=== PATIENT | male | born 1970 | race Caucasian/White ===

== ENCOUNTER → 2024-02-04 06:18 | Outpatient (REF) | payer BC, SELFPAY ==
[2024-02-04 07:47] LABS: ALT (SGPT) 50 U/L (0-50); AST (SGOT) 46 U/L (17-59); Albumin 4.7 g/dl (3.5-5.0); Blood Urea Nitrogen 18 mg/dl (9-20); Calcium 9.8 mg/dl (8.4-10.2); Carbon Dioxide 25 mmol/L (22-30); Glucose 96 mg/dl (70-99); HDL Cholesterol 40 mg/dl; Potassium 4.8 mmol/L (3.5-5.1); Total Bilirubin 0.7 mg/dl (0.2-1.3); Total Cholesterol 261 mg/dl (50-199); Total Protein 7.3 g/dl (6.3-8.2); eGFR > 60.00
[2024-02-04 07:57] LABS: LDL Cholesterol, Direct 64 mg/dl
[2024-02-04 08:00] LABS: Alkaline Phosphatase 67 U/L (38-126); Chloride 101 mmol/L (98-107); Sodium 137 mmol/L (135-145)
[2024-02-04 08:06] LABS: Triglyceride 1288 mg/dl (10-149)
[2024-02-04 08:17] LABS: Estradiol 30.7 pg/ml (5.4-66)
[2024-02-05 11:41] LABS: % Free Testosterone 1.6 % (1.6-2.9); Free Testosterone 160 pg/mL (47-244); Sex Hormone Binding Globulin 55 nmol/L (19-76); Total Testosterone 1011 ng/dL (300-890)
== END ==
LOC: REG 06:18
PROVIDERS: ATTENDING PHYSICIAN Nurse Practitioner Family; FAMILY PHYSICIAN Nurse Practitioner Family
DX: E29.1 Testicular hypofunction (principal); R53.82 Chronic fatigue, unspecified; E78.5 Hyperlipidemia, unspecified; E55.9 Vitamin D deficiency, unspecified; I10 Essential (primary) hypertension; Z12.11 Encounter for screening for malignant neoplasm of colon; E66.9 Obesity, unspecified
CPT/HCPCS: 36415; 80053; 80061; 82670; 83721; 84270; 84402; 84403

== ENCOUNTER → 2024-02-06 08:27 | Outpatient (REF) | payer BC, SELFPAY ==
[2024-02-06 12:56] LABS: % Basophils 0.4 % (0-2); % Eosinophils 1.8 % (0-6); % Immature Granulocytes 0.2 % (0-0.5); % Lymphocytes 29.9 % (20.5-51.1); % Monocytes 10.6 % (1.7-9.3); % Neutrophils 57.1 % (42.2-75.2); Absolute Eosinophils 0.1 10^3/uL (0-0.7); Absolute Lymphocytes 1.3 10^3/uL (1.2-3.4); Absolute Monocytes 0.5 10^3/uL (0.1-0.6); Absolute Neutrophils 2.5 10^3/uL (1.4-6.5); Hematocrit 44.6 % (39.0-52.0); Hemoglobin 15.6 g/dL (13.0-18.0); Mean Corpuscular Hgb 31.3 pg (27.0-31.0); Mean Corpuscular Volume 89.4 fL (80.0-94.0); Mean Platelet Volume 10.7 fL (7.4-10.4); Nucleated Red Blood Cells % 0 % (-); Platelet Count 207 10^3/uL (130-400); Red Blood Cell Count 4.99 10^6/uL (4.70-6.10); Red Cell Dist. Width 12.9 % (11.5-14.5); White Blood Cell Count 4.5 10^3/uL (4.8-10.8)
[2024-02-06 13:42] LABS: HDL Cholesterol 57 mg/dl; LDL Cholesterol, Calculated 134 mg/dl; Total Cholesterol 220 mg/dl (50-199); Triglyceride 146 mg/dl (10-149); Very Low Density Lipoprotein 29 mg/dl (0-30)
[2024-02-06 13:54] LABS: Free T3 4.23 pg/ml (2.77-5.27); Total Thyroxine 8.16 ug/dl (5.5-11.0); Vitamin D, 25-OH*** 43.3 ng/mL (30-80)
[2024-02-06 14:07] LABS: TSH 0.86 uIU/ml (0.47-4.68)
[2024-02-06 14:24] LABS: Glycohemoglobin (HgbA1c) 5.1 % (4.0-5.6)
[2024-02-07 18:02] LABS: Thyroid Peroxidase Ab (TPO) 0.9 IU/mL (0.0-9.0)
[2024-02-08 00:33] LABS: Insulin, Random 6 uIU/mL
== END ==
LOC: HWLAB 08:27
PROVIDERS: ATTENDING PHYSICIAN Nurse Practitioner Family; FAMILY PHYSICIAN Nurse Practitioner Family
DX: E78.5 Hyperlipidemia, unspecified (principal)
CPT/HCPCS: 36415; 80061; 82306; 83036; 83525; 84436; 84443; 84481; 85025; 86376

== ENCOUNTER → 2024-06-17 06:24 | Outpatient (REF) | payer BC, SELFPAY ==
[2024-06-17 07:29] LABS: Hematocrit 44.3 % (39.0-52.0); Hemoglobin 15.8 g/dL (13.0-18.0); Mean Corp Hgb Conc. 35.7 g/dL (33.0-37.0); Mean Corpuscular Hgb 31.2 pg (27.0-31.0); Mean Corpuscular Volume 87.4 fL (80.0-94.0); Mean Platelet Volume 10.7 fL (7.4-10.4); Platelet Count 210 10^3/uL (130-400); Red Blood Cell Count 5.07 10^6/uL (4.70-6.10); Red Cell Dist. Width 12.1 % (11.5-14.5); White Blood Cell Count 5.9 10^3/uL (4.8-10.8)
[2024-06-17 08:15] LABS: Blood Urea Nitrogen 20 mg/dl (9-20); Carbon Dioxide 25 mmol/L (22-30); Chloride 103 mmol/L (98-107); Glucose 105 mg/dl (70-99); Potassium 4.9 mmol/L (3.5-5.1); Sodium 141 mmol/L (135-145); eGFR > 60.00
[2024-06-17 08:24] LABS: PSA, Total - Diagnostic 0.44 ng/ml (0.0-4.0)
[2024-06-17 08:26] LABS: Estradiol 28.6 pg/ml (5.4-66)
[2024-06-18 18:52] LABS: % Free Testosterone 1.3 % (1.6-2.9); Free Testosterone 76 pg/mL (47-244); Sex Hormone Binding Globulin 59 nmol/L (19-76); Total Testosterone 568 ng/dL (300-890)
== END ==
LOC: REG 06:24
PROVIDERS: ATTENDING PHYSICIAN Nurse Practitioner Family; FAMILY PHYSICIAN Nurse Practitioner Family
DX: E29.1 Testicular hypofunction (principal); R53.82 Chronic fatigue, unspecified
CPT/HCPCS: 36415; 80048; 82670; 84153; 84270; 84402; 84403; 85027

== ENCOUNTER → 2024-10-27 12:56 | Outpatient (REF) | payer BC, SELFPAY ==
[2024-10-27 15:22] LABS: Estradiol 15.1 pg/ml (5.4-66)
[2024-10-29 13:49] LABS: % Free Testosterone 1.7 % (1.6-2.9); Free Testosterone 60 pg/mL (47-244); Sex Hormone Binding Globulin 39 nmol/L (19-76); Total Testosterone 359 ng/dL (300-890)
== END ==
LOC: REG 12:56
PROVIDERS: FAMILY PHYSICIAN Nurse Practitioner Family
DX: E29.1 Testicular hypofunction (principal); R53.82 Chronic fatigue, unspecified; E78.5 Hyperlipidemia, unspecified
CPT/HCPCS: 36415; 82670; 84270; 84402; 84403

== ENCOUNTER → 2025-05-25 06:43 | Outpatient (REF) | payer BC, SELFPAY ==
[2025-05-25 07:21] LABS: Hematocrit 42.9 % (39.0-52.0); Hemoglobin 15.5 g/dL (13.0-18.0); Mean Corp Hgb Conc. 36.1 g/dL (33.0-37.0); Mean Corpuscular Volume 86.5 fL (80.0-94.0); Nucleated Red Blood Cells % 0 % (-); Platelet Count 188 10^3/uL (130-400); Red Cell Dist. Width 12.0 % (11.5-14.5)
[2025-05-25 07:57] LABS: Vitamin D, 25-OH*** 32.2 ng/mL (30-80)
[2025-05-25 08:11] LABS: PSA, Total - Screen 0.46 ng/ml (0.0-4.0)
[2025-05-26 23:37] LABS: Testosterone, Bioavailable 257 ng/dL (131-682)
== END ==
LOC: REG 06:43
PROVIDERS: ATTENDING PHYSICIAN Nurse Practitioner Family; FAMILY PHYSICIAN Nurse Practitioner Family
DX: E55.9 Vitamin D deficiency, unspecified (principal); E29.1 Testicular hypofunction; E78.5 Hyperlipidemia, unspecified
CPT/HCPCS: 36415; 82306; 82670; 84270; 84402; 84403; 85025; G0103